=== PATIENT | female | born 1945 | race Caucasian/White ===

== ENCOUNTER 2022-12-15 12:47 | Outpatient (AMB) | payer MEDICARE, SELFPAY ==
[2022-12-15 13:30] VITALS: BP 102/60; PULSE 80; TEMP 36.4; O2SAT 97; BMI 24.0
--- NOTE | 2022-12-15 13:30 | MHC.OFFWIV ---
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 Pt states she has been doing a lot of yard work this past week. 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 Patient is complaining of pain in the left hand. She was pulling weeds all of yesterday. PFSH Social History Patient Tobacco Use Status: Never used Tobacco Physical Exam Vital Signs: Last Vital Signs Temp 97.6 F 12/15/22 13:30 Pulse 80 12/15/22 13:30 BP 102/60 12/15/22 13:30 Pulse Ox 97 12/15/22 13:30 Oxygen Delivery Method Room Air 12/15/22 13:30 BMI result Body Mass Index 24.0 Extrem Other: Left hand: 5th digit: Swollen proximal and distal interphalangeal joint. Tenderness along the lateral side of the finger. Assessment & Plan Assessment & Plan (1) Osteoarthritis, hand: Code(s): M19.049 - Primary osteoarthritis, unspecified hand Plan: X-ray images personally reviewed by me. No fractures seen. Prednisone at 10 mg for a few days given. Orders: Orders XR hand LT min 3V Today M19.049 - Primary osteoarthritis, unspecified hand Coding Level of Care Code Est Pt Level 4 (69075) Diagnoses Osteoarthritis, hand M19.049
== END 2022-12-15 14:43 | disposition home or self-care (01) ==
PROVIDERS: PCP Family Medicine; Visit Provider Internal Medicine
DX: M19.049 Primary osteoarthritis, unspecified hand (principal)
CPT/HCPCS: 99214

== ENCOUNTER 2022-12-15 14:18 | Outpatient (REF) | payer MEDICARE, SELFPAY ==
--- NOTE | ~2022-12-15 | XR_ITS ---
EXAMINATION: XR HAND, LEFT CLINICAL INFORMATION: Primary osteoarthritis. COMPARISON: None available. TECHNIQUE: PA, lateral, and oblique views of the left hand. FINDINGS: Mild to moderate distal interphalangeal degenerative joint changes are seen in the fifth digit. There is no acute fracture or dislocation. The bony pelvis is intact. The carpal bones are normally aligned. The distal radius and ulna are intact. The soft tissues are unremarkable. XR/XR hand LT min 3V IMPRESSION: Mild to moderate distal interphalangeal degenerative joint changes in the fifth digit most consistent with osteoarthritis.
== END 2022-12-15 14:19 | disposition home or self-care (01) ==
LOC: HO.HMGCX 14:18
PROVIDERS: PCP Family Medicine; Visit Provider Internal Medicine
DX: M19.042 Primary osteoarthritis, left hand (principal)
CPT/HCPCS: 73130

== ENCOUNTER 2025-03-30 13:39 | Outpatient (AMB) | payer MEDICARE, SELFPAY ==
[2025-03-30 14:20] VITALS: BP 118/66; PULSE 70; TEMP 36.6; O2SAT 96; BMI 22.3
--- NOTE | 2025-03-30 14:20 | AM.OFFWIN_ITS ---
Intake Vital Signs 03/30/25 14:20 Height 5 ft 2 in Weight 122 lb BMI 22.3 BP 118/66 Blood Pressure Location Rt brachial Position Sitting Pulse 70 Pulse Source Pulse Oximeter Temp 97.9 F Temp Source Oral Pulse Oximetry (%) 96 Oxygen Delivery Method Room Air Intake Visit Reasons: EP-lt hand pain Intake Note: pt presents with left wrist swelling and pain for 2 days that is beginning to travel to metacarpals - recalls having to lift her wheelchair bound 6 days ago when he fell- reports pmhx fx to left hand radial area Patient Tobacco Use Status: Never used Tobacco Allergies bee pollen (BEE STINGS) Allergy (Severe, Unverified 03/30/25 14:28) FACIAL SWELLING rofecoxib (From VIOXX) Allergy (Intermediate, Unverified 03/30/25 14:28) RASH lactose (LACTOSE) Adverse Reaction (Mild, Unverified 03/30/25 14:28) STOMACH UPSET Do you need a note to return to daycare/school/sports/work: No HPI HPI Comments History of Present Illness Details History of Present Illness - The patient is a 79-year-old female pr esenting with left wrist pain and swelling. - She is left-handed and reports that th e wrist was sore yesterday morning, but the pain progressed to a throbbing sensation with significant swelling by the afternoon. - She believes the injury may have been caused by lifting her . - She also notes that the pain has start ed to radiate down into her fingers, which is noticeable when grabbing things, but denies any pain in the thumb or elbow. - She denies numbness, tingling, hand pa in, or elbow pain. Physical Exam General: Cooperative, healthy appearing, comfortable, no acute distress and well developed Orientation: Patient oriented x3 Limitations: No limitations Respiratory: Normal respiratory effort and able to speak in complete sentences. Clear to auscultation bilaterally Cardiovascular: Regular rate and rhythm. Pulses are 2+ on the UE bilaterally. Skin: No rashes or lesions noted. No bruising noted. Swelling noted to the lateral wrist on the left. Neuro: Sensation intact. Extremities: Swelling noted in the left wrist. FROM of the left wrist. FROM of the digits on the left hand. TTP of the left ulnar styloid. No TTP of the radius. No TTP of the carpals. Did not perform finklesteins due to her pain. Negative Tinels and phalens. Patient was informed and verbally consented to the use of an ambient scribe for clinic note documentation during this visit. [facility] Medical History (Updated 03/30/25 @ 15:02 by Lavern Hutchins PA-C) Wrist sprain Social History Patient Tobacco Use Status: Never used Tobacco Review of Systems Const All systems reviewed & are unremarkable except as noted in HPI and below Physical Exam Vital Signs: Last Vital Signs Temp 97.9 F 03/30/25 14:20 Pulse 70 03/30/25 14:20 BP 118/66 03/30/25 14:20 Pulse Ox 96 03/30/25 14:20 Oxygen Delivery Method Room Air 03/30/25 14:20 BMI result Body Mass Index 22.3 Results Reviewed Results Reviewed: will review the xray in the office FINDINGS: There is a nondisplaced fracture of the ulnar styloid. Tiny avulsion fracture also noted from the tip. No additional fracture or focal bony abnormality. Radius appears intact. Carpal bones appear intact and normally aligned. Joint spaces are preserved. There is mild dorsal soft tissue swelling. XR/XR wrist LT min 3V IMPRESSION: Nondisplaced ulnar styloid fracture. Assessment & Plan Assessment & Plan (1) Left wrist pain: Code(s): M25.532 - Pain in left wrist (2) Nondisplaced fracture of left ulna: Code(s): S52.202A - Unspecified fracture of shaft of left ulna, initial encounter for closed fracture Qualifiers: Encounter type: initial encounter Ulna location: styloid process Fracture type: closed Qualified Code(s): S52.615A - Nondisplaced fracture of left ulna styloid process, initial encounter for closed fracture Plan Most likely sprain vs fracture plan - An X-ray of the left wrist was performed and showed no evidence of an acute fracture. - A splint was applied to the wrist for support and to facilitate rest. - The patient was advised that she would be contacted if there are any other findings on the final X-ray report. - Final report showed a nondisplaced fracture and pt will need another splint - will refer her to ortho - follow up with PCP Orders: Orders XR wrist LT min 3V Today S63.509A - Unspecified sprain of unspecified wrist, initial encounter Referrals Orthopedics Referral S52.613A - Displaced fracture of unspecified ulna styloid process, initial encounter for closed fracture Coding Level of Care Code Est Pt Level 4 (47423) Diagnoses Left wrist pain M25.532 Closed nondisplaced fracture of styloid process of left ulna, initial encounter S52.615A Encounter type: initial encounter Ulna location: styloid process Fracture type: closed
== END 2025-03-30 16:27 | disposition home or self-care (01) ==
PROVIDERS: PCP Family Medicine; Visit Provider Physician Assistant Medical
DX: S52.615A Nondisplaced fracture of left ulna styloid process, initial encounter for closed fracture (principal); M25.532 Pain in left wrist

== ENCOUNTER 2025-03-30 13:39 | Outpatient (REF) | payer MEDICARE, SELFPAY ==
--- OUTSIDE RECORDS SUMMARY | 2025-01-20 05:30 | XMS_ITS ---
Author Organization [facility] [place] Address [address] [place] [address] Care Team Providers Care Senior Trainer Name Role Phone Rosa Girard MD Primary Care Provider UnavailRaya Dias Unavailable [phone] Encounters Encounter Location Date Provider Diagnosis [facility] [address] [address] 01/20/2025 Raya Silveira Plan Of Treatment No Information Progress Notes * Sonal SHIPMAN CDOB:1945 (79 yo F)Acc No.[id number]:01/20/2025 Patient: Sonal SARABIA Provider: Chika Silveira DPM :1945 A ge:79 Y S ex:Female Date:01/20/2025 Address: [id number] Pcp:Rosa Girard MD Subjective: * Chief Complaints: * * Medical History: Objective: * Vitals: Assessment: Plan: * Treatment: * Images: * The named appointment provid er may or may not be the originator of this progress note, and it is not deemed complete until electronically signed by the appointment provider. Sign off status: Pending * Provider: Chika Silveira DPM Date: Generated for Printi ng/Faxing/eTransmitting on: 05/31/2024 10:35 PM EST
--- NOTE | ~2025-03-30 | XR_ITS ---
EXAMINATION: XR WRIST, LEFT CLINICAL INFORMATION: S63.509A - Unspecified sprain of unspecified wrist, initial encounter COMPARISON: None available. TECHNIQUE: PA, lateral, and oblique views of the left wrist. FINDINGS: There is a nondisplaced fracture of the ulnar styloid. Tiny avulsion fracture also noted from the tip. No additional fracture or focal bony abnormality. Radius appears intact. Carpal bones appear intact and normally aligned. Joint spaces are preserved. There is mild dorsal soft tissue swelling. XR/XR wrist LT min 3V IMPRESSION: Nondisplaced ulnar styloid fracture. Electronically signed by: Tyler Johnson MD 03/30/2025 03:30 PM MARLENE
--- OUTSIDE RECORDS SUMMARY | 2025-03-30 22:36 | XMS_ITS | Patient Health Record ---
Author Organization [facility] [place] Address [address] [place] [address] Care Team Providers Care Grades 7 And 8 Visiting Teacher Name Role Phone Rosa Girard MD Primary Care Provider Unavailab Raya Mobley Unavailable [phone] Allergies Allergen (clinical drug ingredient) Drug/Non Drug Allergy documented on EMR Reaction Allergy Type Onset Date Status Lactose diarrhea Drug Allergy Active Vioxx rash Drug Allergy Active Results Component Value Reference Range Notes HEMOGLOBIN A1C (GLYCOHEMOGLO BIN) Reviewed date:09/23/2024 10:42:40 AM Interpretation: Performing Lab: Notes/Report: HEMOGLOBIN A1C % (HH) 7.1 HEMOGLOBIN A1C (GLYCOHEMOGLO BIN) Reviewed date:01/03/2025 09:23:30 AM Interpretation: Performing Lab: Notes/Report: HEMOGLOBIN A1C % (HH) 7.1 Reason For Referral No Information Medications Medication SIG (Take, Route, Frequency, Duration) Notes Start Date End Date Status Iron Not-Taking Omeprazole 20mg Acti ve Keflex 500 MG 1 capsule Orally cirilo ry 12 hrs; Duration: 7 days 12/08/2019 Not-Taking metFORMIN HCl ER 500 MG Orally twice daily Active Aspirin 81 MG Orally Not-Ta nolberto Vitamin D Active Vitamin C Not-Taking Stool Softener Not-T aking Lisinopril 10 MG 1 tablet Orally Once a day Active Lovastatin 20 MG 1 tablet with a meal Orally Once a day; Duration: 30 days Active PreserVision AREDS A ctive Calcium + D 600-200 MG-UNIT 1 tablet with food Orally Twice a day; Duration: 30 day(s) Not-Taking Immunizations Vaccine Route Administration Date Status Comme nts Influenza Unknown 01/06/2018 Administered Influenza Unknown 03/04/2019 Administered Influenza Unknown 12/08/2019 Administered Influenza Unknown 04/20/2024 Administered Social History Tobacco Use: Social History Observation Description Date Details (start date - stop date) Never Smoker NA - NA Tobacco use other than smoking: Question Answer Notes Are you an other tobacco user? No Tobacco Control (Standard) Question Answer Notes Tobacco use: Nonsmoker Additional Findings: Tobacco non-user Current no nsmoker AUDIT-C (Standard) Question Answer Notes Did you have a drink contain ing alcohol in the past year? Yes How often did you have a dri nk containing alcohol in the past year? 2 to 4 times a month (2 points) How many drinks did you have on a typical day when you were drinking in the past year? 1 or 2 drinks (0 point) How often did you have six o r more drinks on one occasion in the past year? 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) Active confirmed Problem Type II diabetes mellitus without complication (089674969) Type 2 diabetes mellitus without complication , without long-term current use of insulin (E11.9) Active confirmed Vital Signs Blood pressure diastolic 78 mm Hg 01/03/2025 Height 5ft in 01/03/2025 Blood pressure systolic 113 mm Hg 01/03/2025 Weight 120 lbs 01/03/2025 BMI 23.43 kg/m2 01/03/2025 Encounters Encounter Location Date Provider Diagnosis [address] [address] 09/23/2024 Raya Perica Pain in right foot M79.671 ; Ganglion of foot, right M67.471 and Neuritis of right foot G57.[address] [facility] [address] 01/03/2025 Raya Solimanmikey Pain in right foot M79.671 ; Ganglion of foot, right M67.471 ; Neuritis of right foot G57.91 ; Soft tissue mass M79.89 and Type 2 diabetes mellitus without complication, without long-term current use of insulin E11.[facility] [address] 01/03/2025 Raya Jordana Assessments Encounter Date Diagnosis (ICD Code) Assessment Notes Treatment Notes Treatment Clinical Notes Section Notes 09/23/2024 Pain in right foot (ICD-10 - M79.671) 09/23/2024 Ganglion of foot, right (ICD-10 - M67.471) 01/03/2025 Pain in right foot (ICD-10 - M79.671) 01/03/2025 Ganglion of foot, right (ICD-10 - M67.471) 01/03/2025 Neuritis of right foot (ICD-10 - G57.91) 09/23/2024 Neuritis of right foot (ICD-10 - G57.91) 01/03/2025 Soft tissue mass (ICD-10 - M79.89) 01/03/2025 Type 2 diabetes mellitus without complication, without long-term current use of insulin (ICD-10 - E11.9) Plan Of Treatment Pending Test Test Name Order Date X ray : Foot, right 3V 12/27/2012 X ray : Foot, right 3V 02/10/2018 X ray : Foot, right 3V 09/08/2018 X ray : Foot, right 3V 11/11/2019 X ray : Foot, right 3V 11/25/2019 X ray : Foot, right 3V 12/20/2019 X ray : Foot, right 3V 03/01/2020 X ray : Foot, right 3V 09/23/2024 [id number] Destruction, 1-14 01/06/2011 [id number] Plate 02/10/2018 11634, J0702- Neuroma/Injection 12/01/19 Insurance Providers Payer Name Payer Address Payer Phone Subscriber Number Group Number Insured Name Patient Relationship to Insured Coverage Start Date Coverage End Date Medicare [employer] [address] [place] [address] [id number] Skye Sonal Self - patient is the insured 3 [employer] [address] [place] [address] [phone] [id number] Sonal Cheung Self - patient is the insured Medical (General) History Medical History History ICD Code Back,Hip,and Knee pain Cataracts Diabetic Hiatal hernia Chicken pox Measles Mumps Joint implants/screws Surgical History Surgery Date(Month/Year) eye surgery 194 B/L hernia 194 hysterectomy 1976 knee surgery bilateral 1989, 2007 right hand surgery 2012 appendectomy 195 shoulder 03/2015 2 small toes Excision of Neuroma right 3rd Hammertoe right second 11/24/2019 knee surgery 2023 [place] History Reason Date([place] [facility] [place]
== END 2025-03-30 13:40 | disposition home or self-care (01) ==
LOC: HO.HMGCX 13:39
PROVIDERS: PCP Family Medicine; Visit Provider Physician Assistant Medical
DX: S52.615A Nondisplaced fracture of left ulna styloid process, initial encounter for closed fracture (principal); X50.0XXA Overexertion from strenuous movement or load, initial encounter; Y93.9 Activity, unspecified; Y92.9 Unspecified place or not applicable; Y99.9 Unspecified external cause status
CPT/HCPCS: 29125; 73110; 99212

== ENCOUNTER → 2025-03-30 15:09 | Outpatient (BNV) | payer MEDICARE, SELFPAY | PROVIDERS: PCP Family Medicine; Visit Provider Radiology Diagnostic Radiology | DX: S52.615A Nondisplaced fracture of left ulna styloid process, initial encounter for closed fracture (principal) | CPT/HCPCS: 73110 ==